=== PATIENT | male | born 1980 | race Caucasian/White ===

== ENCOUNTER 2016-05-09 14:44 | Emergency (ER) | payer OTHER ==
--- NOTE | 2016-05-09 14:55 | EDPHY ---
H & P Stated Complaint: Jaw Pain/Seizure Time Seen by Provider: 05/09/16 14:55 - Personal History Current Tetanus/Diphtheria Vaccine: Yes Current Tetanus Diphtheria and Acellular Pertussis (TDAP): Yes Tetanus Vaccine Date: 2012 - Medical/Surgical History Hx Asthma: No Hx Chronic Respiratory Disease: No Hx Diabetes: No Hx Cardiac Disease: No Hx Renal Disease: No Hx Cirrhosis: No Hx Alcoholism: No Hx HIV/AIDS: No Hx Splenectomy or Spleen Trauma: No Other PMH: denies - Social History Smoking Status: Heavy smoker Constitutional: Initial Vital Signs Temperature (C) 37.2 C 05/09/16 14:52 Heart Rate 80 05/09/16 14:52 Respiratory Rate 20 05/09/16 14:52 Blood Pressure 146/101 H 05/09/16 14:52 O2 Sat (%) 99 05/09/16 14:52 O2 Delivery Mode [Post Nasal Cannula Procedure 2nd] O2 Delivery Mode [Post Non-Rebreather Mask Procedure 1st] O2 Delivery Mode [Procedural Non-Rebreather Mask 1st] O2 Delivery Mode [.Immediate Non-Rebreather Mask Pre-Procedure] O2 Delivery Mode Nasal Cannula O2 (L/minute) [Post Procedure 2 2nd] O2 (L/minute) [Post Procedure 15 1st] O2 (L/minute) [Procedural 1st] 15 O2 (L/minute) [.Immediate Pre- 15 Procedure] O2 (L/minute) 2 Allergies/Adverse Reactions: No Known Allergies Allergy (Unverified 10/25/15 18:53) Home Medications: Medication Instructions Recorded Methocarbamol [Robaxin 750 mg (*)] 750 - 1,500 mg PO QID PRN #30 tab 10/25/15 ALPRAZolam [Xanax 0.5 MG (*)] 0.5 - 1 mg PO PRN PRN 11/05/15 CYCLOBENZAPRINE HCL [Flexeril] 7.5 mg PO TID PRN 11/05/15 Hydrocodone/APAP 5/325 [Rives 1 - 2 tab PO Q4PRN PRN 11/05/15 5/325 (*)] Hydrocodone/Acetaminophen [Vicodin 1 each PO Q6-8PRN PRN 11/05/15 5-300 mg Tablet] Acetaminophen [Tylenol 325mg (*)] 650 mg PO Q4 PRN #0 tab 11/07/15 Sennosides/Docusate Sodium 1 - 2 tab PO BID #30 tab 11/07/15 [Senokot-S] levETIRAcetam [Keppra 500 mg (*)] 750 mg PO BID #14 tab 11/07/15 Cyclobenzaprine [Flexeril 10 MG 10 mg PO TID PRN #7 tab 05/09/16 (*)] oxyCODONE IR [Oxycodone Ir (*)] 5 - 10 mg PO Q6 PRN #7 tab 05/09/16 Medical Decision Making ED Course/Re-evaluation: CHIEF COMPLAINT: Seizure HISTORY OF PRESENT ILLNESS: This patient is a 35 year old male who presents to the Emergency Department by EMS following a witnessed seizure shortly prior to arrival. He presents with an apparent jaw deformity as well as superficial abrasions over both knees and the dorsum of both hands. He has no recollection of the incident. Upon arrival, he has no complaints and states that he does not know what happened. No headache, confusion. Denies evidence of head or neck trauma. He denies history of seizures though his medical history in our system indicates that he has previously been prescribed Keppra. REVIEW OF SYSTEMS: A 10 point review of systems was performed and is negative with the exception of the elements mentioned in the history of present illness. PHYSICAL EXAM: HR 80, BP 146/101, O2 Sat 99%, RR 20. Temp noted General Appearance: Alert, well hydrated, appropriate, and non-toxic appearing. Head: Atraumatic without scalp tenderness or obvious injury Eyes: Pupils equal, round, reactive to light and accommodation, EOMI, no trauma , no injection. Ears: Clear bilaterally, no perforation, normal landmarks Nose: Atraumatic, no rhinorrhea, clear. Throat: There is no erythema or exudates, no lesions, normal tonsils, mucus membranes moist. Mouth: Visible jaw deformity. Neck: Supple, 2+ carotid upstroke, nontender, no lymphadenopathy. Respiratory: No retractions, no distress, no wheezes, and no accessory muscle use. Lungs are clear to auscultation bilaterally. Cardiovascular: Regular rate and rhythm, no murmurs, rubs, or gallops. Bilateral carotid, radial, dorsalis pedis, and posterior tibial pulses intact. Good capillary refill all extremities. Gastrointestinal: Abdomen is soft, nontender, non-distended, no masses, no rebound, no guarding, no peritoneal signs. Musculoskeletal: Normal active ROM of all extremities, superficial abrasions to both knees and over the dorsum of both hands. Neurological: Alert, appropriate, and interactive. The patient has normal DTRs and non-focal cranial nerves, motor, sensory, and cerebellar exam. Skin: No rashes, good turgor, no nodules on palpation. Past medical history: Denies. Past surgical history: Denies. Family history: Non-contributory. Social history: Drinks socially. DIAGNOSTICS/PROCEDURES/CRITICAL CARE TIME: IMAGING: Study: Myofascial CT Indication: Jaw deformity Results: CT of the facial bones was obtained. The results of the study are: bilateral anterior TMJ dislocation; negative for fracture. The study was read by the radiologist, Dr. Augie Boothe. I viewed the images myself on the PACS system. Study: Head CT Indication: Seizure Results: CT of the head was obtained. The results of the study are: normal. The study was read by the radiologist, Dr. Augie Boothe. I viewed the images myself on the PACS system PROCEDURES: Procedure: Reduction of bilateral anterior TMJ Time-out completed immediately before the procedure. IV established. O2 administered. Placed on pulse oximeter and ETCO2 monitor. Given 100 mcg IV fentanyl and 110 mcg propofol for pain and sedation. The bilateral anterior TMJ dislocation was attempted to be reduced using traction/ countertraction without success. The procedure was performed by myself, Dr. Barclay. Procedure: Procedural sedation. Indication: TMJ reduction A pre-sedation evaluation was completed on the patient at 1700. Patient is an appropriate candidate for procedural sedation. The risks, benefits, alternatives of sedation were discussed with the patient. Consent was obtained. The patient was pre-oxygenated with 100% O2 on a [id number] and moved to the procedure room where airway rescue equipment is available. A time out was observed. The patient was sedated with 100mcg fentanyl and 120mcg propofol. The patient was monitored with continuous pulse oximetry, monitoring specialist, and end tidal CO2. There were no complications and no hypoxemia. The patient tolerated the procedure well and returned to baseline. I remained at the bedside for the sedation. The total time I spent in the procedural sedation was 12 minutes. TMJ reduction was performed by Dr. Silveira. DIFFERENTIAL DIAGNOSIS: The differential diagnosis for the patient's seizure included but was not limited to electrolyte abnormality, alcohol withdrawal, medication noncompliance, head injury, SOCK FOLDER structural abnormality, and break through seizure. MEDICAL DECISION MAKING: This 35 year old male presents following a witnessed seizure which he does not remember. He denies a history of seizures though there is suspicion that he may have a seizure disorder as he has been previously prescribed Keppra. It is likely that the patient is postictal upon arrival. He has no complaints apart from apparent jaw deformity and multiple superficial abrasions. 1521: Labs reviewed and indicate anion gap metabolic acidosis consistent with seizure. 1522: The patient's RN spoke with the patient's who reports that he has a history of TBI for which he was prescribed Keppra for seizure prophylaxis. He does have a history of prior jaw dislocations that are reduced spontaneously. 1600: Imaging results reported to me by Dr. Boothe. Plan for TMJ reduction bilaterally. 1622: Procedure for TMJ reduction attempted by myself without success. Plan for consultation with oral surgery as the patient will require reduction under anesthesia. 1629: Consultation with Dr. Brian Silveira, oral surgeon, who will visit the patient and complete the reduction in the ED. 1702: Procedural sedation and subsequent TMJ reduction performed (as described above). The patient will be discharged home in stable condition. Dr. Silveira will see him in her office on Sunday. He is given Flexeril for muscle relaxant and will continue to take his Keppra as prescribed for seizure prophylaxis. - Data Points Laboratory Results: Laboratory Results 05/09/16 14:32 05/09/16 14:32 05/09/16 14:32 WBC 14.34 H 10^3/uL (3.80-9.50) RBC 5.00 10^6/uL (4.40-6.38) Hgb 15.5 g/dL (13.7-17.5) Hct 48.3 % (40.0-51.0) MCV 96.6 fL (81.5-99.8) MCH 31.0 pg (27.9-34.1) MCHC 32.1 L g/dL (32.4-36.7) RDW 14.4 % (11.5-15.2) Plt Count 479 H 10^3/uL (150-400) MPV 9.3 fL (8.7-11.7) Neut % (Auto) 56.5 % (39.3-74.2) Lymph % (Auto) 36.9 % (15.0-45.0) [place] % (Auto) 5.2 % (4.5-13.0) Eos % (Auto) 0.3 L % (0.6-7.6) Baso % (Auto) 0.4 % (0.3-1.7) Nucleat RBC Rel Count 0.0 % (0.0-0.2) Absolute Neuts (auto) 8.09 H 10^3/uL (1.70-6.50) Absolute Lymphs (auto) 5.29 H 10^3/uL (1.00-3.00) Absolute Monos (auto) 0.75 10^3/uL (0.30-0.80) Absolute Eos (auto) 0.05 10^3/uL (0.03-0.40) Absolute Basos (auto) 0.06 10^3/uL (0.02-0.10) Absolute Nucleated RBC 0.00 10^3/uL (0-0.01) Immature Gran % 0.7 % (0.0-1.1) Immature Gran # 0.10 10^3/uL (0.00-0.10) Sodium 145 H mEq/L (134-144) Potassium 4.0 mEq/L (3.5-5.2) Chloride 106 mEq/L (97-110) Carbon Dioxide 10 L mEq/l (22-31) Anion Gap 29 H mEq/L (8-16) BUN 17 mg/dL (7-23) Creatinine 1.0 mg/dL (0.7-1.3) Estimated GFR > 60 Glucose 145 H mg/dL (70-100) Calcium 10.2 mg/dL (8.5-10.4) Medications Given: Discontinued Medications Fentanyl (Sublimaze) 100 mcg IVP EDNOW ONE Stop: 05/09/16 16:16 Last Admin: 05/09/16 16:46 Dose: 100 mcg Hydromorphone HCl (Dilaudid) 1 mg IVP EDNOW ONE Stop: 05/09/16 15:09 Last Admin: 05/09/16 15:17 Dose: 1 mg Lorazepam (Ativan Injection) 1 mg IVP EDNOW ONE Stop: 05/09/16 15:09 Last Admin: 05/09/16 15:17 Dose: 1 mg Propofol (Diprivan) 100 mg IVP EDNOW ONE Stop: 05/09/16 16:16 Last Admin: 05/09/16 16:46 Dose: 100 mg Departure - Departure Disposition: Home, Routine, Self-Care Clinical Impression: Seizure, TMJ dislocation Condition: Good Instructions: Mandibular Dislocation (ED), Recurrent Seizures in Adults (ED) Additional Instructions: 1. Take Flexirel as prescribed for muscle relaxant. Take oxycodone as prescribed as needed for pain. 2. Follow-up with Dr. Silveira in her office on Sunday as discussed. 3. Continue to take your Keppra as prescribed for seizure prevention. Call to schedule a follow-up appointment with a neurologist for further evaluation of your seizures. We have referred you to Dr. Medina. 4. Return to the Emergency Department with repeat seizure, repeat jaw dislocation, confusion, headache, or other serious concerns. Referrals: Brian Silveira [Medical Doctor] - As per Instructions Mainor Medina MD [Medical Doctor] - As per Instructions Prescriptions: Cyclobenzaprine [Flexeril 10 MG (*)] 10 mg PO TID PRN #7 tab PRN Reason: Spasms oxyCODONE IR [Oxycodone Ir (*)] 5 - 10 mg PO Q6 PRN #7 tab PRN Reason: Pain, Severe Report Scribed for: Flash Barclay Report Scribed by: Tara Crandall Date of Report: 05/09/16 Time of Report: 14:57
[2016-05-09 15:07] LABS: % IMMATURE GRANULYOCYTES 0.7 % (0.0-1.1); ADD DIFF? NO; ADD MORPH? NO; ADD SCAN? NO; ATYPICAL LYMPHOCYTE FLAG 40 (0-99); FRAGMENT RBC FLAG 0 (0-99); HEMATOCRIT 48.3 % (40.0-51.0); HEMOGLOBIN 15.5 g/dL (13.7-17.5); LEFT SHIFT FLG 0 (0-99); LIPEMIA HEMOLYSIS FLAG 80 (0-99); MEAN CELL HEMOGLOBIN CONCENTR. 32.1 g/dL (32.4-36.7); MEAN CELL VOLUME 96.6 fL (81.5-99.8); MEAN PLATELET VOLUME 9.3 fL (8.7-11.7); PLATELET CLUMPS FLAG 0 (0-99); PLATELET COUNT 479 10^3/uL (150-400); RED CELL DISTRIBUTION WIDTH 14.4 % (11.5-15.2)
[2016-05-09] MEDS ORDERED: HYDROmorphONE/DILAUDID 1 MG/ML SYR IVP ONE (15:08)
[2016-05-09] MEDS ORDERED: LORazepam 2 MG/ML INJ IVP ONE (15:08)
[2016-05-09 15:14] LABS: ANION GAP 29 mEq/L (8-16); CALCIUM 10.2 mg/dL (8.5-10.4); CARBON DIOXIDE 10 mEq/l (22-31); CHLORIDE 106 mEq/L (97-110); GLOMERULAR FILTRATION RATE > 60; GLUCOSE 145 mg/dL (70-100); SODIUM 145 mEq/L (134-144)
--- NOTE | 2016-05-09 15:57 | CT ---
CT Head Without Contrast History: Seizure with possible dislocation of the jaw. Comparison: CT head November 04, 2015. Technique: Axial unenhanced images were obtained from the vertex through the skull base. Dose reducti on techniques were utilized. Findings: There is bifrontal encephalomalacia, left greater than right, and anterior left temporal en cephalomalacia in areas of previous trauma/hemorrhage. No acute intracranial hemorrhage is present. T here is no midline shift. No extra-axial fluid collections are present. Anterior dislocation of the t emporomandibular joints is noted bilaterally with no visible fracture. Left frontal craniotomy is not ed. Moderate mucous membrane thickening is present in the right maxillary sinus with mild mucous memb lorenzo thickening in the paranasal sinuses. The mastoid air cells are clear Impression: 1. Anterior dislocation of the temporomandibular joints bilaterally. 2. Encephalomalacia in areas of previous trauma. 3. Additional findings as above. Findings discussed with Dr. Flash Barclay, on May 09, 2016 at 1553 hours.
--- NOTE | 2016-05-09 15:59 | CT ---
CT Facial Bones (Without Contrast) History: Seizure today, unable to close jaw. Comparison: CT head same day, CT head November 04, 2015. Technique: Axial images were obtained through the facial bones and coronal reformations were perfor med. The data was reformatted in bone algorithm. Dose reduction techniques were utilized. Findings: There is anterior dislocation of the temporomandibular joints bilaterally. No fracture is i dentified. The paranasal sinuses are clear. The ostiomeatal units are patent. The visible mastoid air cells are clear. Encephalomalacia is noted in areas of previous trauma. Impression: Anterior temporomandibular joint dislocation bilaterally. Findings discussed with Dr. Flash Barclay, on May 09, 2016 at 1553 hours.
[2016-05-09] MEDS ORDERED: PROPOFOL 200 MG/20 ML VIAL ONE (16:09)
[2016-05-09] MEDS ORDERED: fentaNYL 100 MCG/2 ML INJ ONE (16:14)
[2016-05-09] MEDS ORDERED: PROPOFOL 200 MG/20 ML VIAL IVP ONE ×2 (16:15→17:00)
[2016-05-09] MEDS ORDERED: fentaNYL 100 MCG/2 ML INJ IVP ONE ×2 (16:15→17:00)
[2016-05-09 16:43] VITALS: RESP 18
[2016-05-09 17:32] VITALS: TEMP 98.4
[2016-05-09 18:04] VITALS: BP 146/89; PULSE 94; O2SAT 97
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
== END 2016-05-09 18:17 | disposition home or self-care (01) ==
LOC: EDBD → EDUNIT#
PROC: 0RSDXZZ Reposition Left Temporomandibular Joint, External Approach (ICD-10-PCS; principal; 2016-05-09)
PROC: 0RSCXZZ Reposition Right Temporomandibular Joint, External Approach (ICD-10-PCS; 2016-05-09)
DX: R56.9 Unspecified convulsions (principal); S03.03XA Dislocation of jaw, bilateral, initial encounter; F17.200 Nicotine dependence, unspecified, uncomplicated; X58.XXXA Exposure to other specified factors, initial encounter; Y93.89 Activity, other specified
CPT/HCPCS: 96374; J1170; J2704; J3010

== ENCOUNTER 2016-10-08 17:28 | Emergency (ER) | payer SELFPAY ==
[2016-10-08 17:45] VITALS: RESP 16; TEMP 98.4
[2016-10-08] MEDS ORDERED: NS 1,000 ML IV ONE (17:47)
[2016-10-08] MEDS ORDERED: KETOROLAC 30 MG/1 ML SDV IVP ONE (17:47)
[2016-10-08] MEDS ORDERED: METOCLOPRAMIDE 10 MG/2 ML VIAL IVP ONE (17:47)
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
[2016-10-08 18:45] VITALS: BP 123/76; PULSE 76; O2SAT 96
== END 2016-10-08 18:58 | disposition home or self-care (01) ==
LOC: CED 17:28
DX: G43.009 Migraine without aura, not intractable, without status migrainosus (principal); E86.9 Volume depletion, unspecified; F17.200 Nicotine dependence, unspecified, uncomplicated
CPT/HCPCS: 96374; J1200; J1885; J2765

== ENCOUNTER 2016-12-11 16:29 | Emergency (ER) | payer SELFPAY ==
[2016-12-11 16:39] VITALS: BP 124/62; RESP 18; TEMP 98
[2016-12-11] MEDS ORDERED: IBUPROFEN 600 MG TAB PO ONE (17:18)
[2016-12-11] MEDS ORDERED: ACETAMINOPHEN 500 MG TAB PO ONE (17:18)
--- NOTE | 2016-12-11 17:23 | EDPHY ---
H & P Time Seen by Provider: 12/11/16 16:56 HPI/ROS: This patient tripped over his dog in a paved parking lot and fell with pain at the base of the 1st metacarpal in his left hand from where he landed. He also sustained an abrasion to his right knee. The incident occurred 2 hours prior to arrival. He has not taken any medication and he reports moderate pain to the hand mild pain from the abrasion. Hand pain worsens with movement. No other exacerbating factors. Drove here by private vehicle for further evaluation. ROS: Musculoskeletal: No neck or back pain. Neuro: No numbness or tingling Cardiovascular: No pallor to the affected hand. 5 point ROS is otherwise negative. Past Medical/Surgical History: Migraines-Imitrex p.r.n. Smoking Status: Current every day smoker Physical Exam: Physical Exam Vital signs are normal. General: No acute distress HEENT: Atraumatic. Eyes: Pupils equal and react to light. Extraocular motions are intact. Lungs: No respiratory distress. Cardiac: Brisk capillary refill is intact throughout. Pulses are 2+ and symmetric in the affected extremity. Skin: No rash or pallor. Superficial abrasion to the left prepatellar region with no can't 10 minutes a fernandez and no active bleeding. Partial-thickness. No underlying bony tenderness Musculoskeletal: Tenderness at the base of the left 1st metacarpal with no significant swelling. He has slight limitation range of motion in abduction- cannot touches pinky due to pain to that area. No gross deformity. No other hand swelling or tenderness. No wrist tenderness or swelling. No anatomical snuffbox tenderness. Neuro: Alert with no sensorimotor deficits in the affected extremity. Initial differential diagnosis: Hand fracture 2 base of 1st metacarpal versus sprain versus contusion, abrasion Constitutional: Initial Vital Signs Temperature (C) 36.6 C 12/11/16 16:38 Heart Rate 74 12/11/16 16:38 Respiratory Rate 18 12/11/16 16:38 Blood Pressure 124/62 H 12/11/16 16:38 O2 Sat (%) 96 12/11/16 16:38 O2 Delivery Mode Room Air Allergies/Adverse Reactions: No Known Allergies Allergy (Verified 10/08/16 17:45) Home Medications: Medication Instructions Recorded SUMAtriptan [Imitrex 25 MG (*)] 25 mg PO Q2H #12 tab 10/08/16 MDM/Departure - MDM Diagnostics: Hand x-ray: Negative for fracture by my interpretation Imaging Results: Imaging Impressions Hand X-Ray 12/11/16 16:39 Impression: No acute osseous findings. Imaging: I viewed and interpreted images myself Medications Given: Discontinued Medications Acetaminophen (Tylenol) 1,000 mg PO EDNOW ONE Stop: 12/11/16 17:19 Last Admin: 12/11/16 17:39 Dose: 1,000 mg Ibuprofen (Motrin) 600 mg PO EDNOW ONE Stop: 12/11/16 17:19 Last Admin: 12/11/16 17:39 Dose: 600 mg ED Course/Re-evaluation: I counseled this patient regarding sprain. He is treated with ibuprofen Tylenol for pain Velcro thumb spica splint is applied. This is placed by our nurse and patient is neurovascular intact post splint application. Wound care was given to the abrasion-after let solution, cleaned and bandage applied. Discussion: Patient with hand sprain and abrasion without evidence of fracture , scaphoid fracture or other complications. - Depart Disposition: Home, Routine, Self-Care Clinical Impression: Hand sprain Qualifiers: Encounter type: initial encounter Laterality: left Qualified Code(s): S63.92XA - Sprain of unspecified part of left wrist and hand, initial encounter Leg abrasion Qualifiers: Encounter type: initial encounter Laterality: right Qualified Code(s): S80.811A - Abrasion, right lower leg, initial encounter Condition: Good Instructions: Hand Sprain (ED), Abrasion (ED) Additional Instructions: Diagnoses: 1. Hand sprain 2. Leg abrasion Plan: Clean your leg regularly and apply dressing until it heals. Velcro thumb spica splint for the next 5-10 days until symptoms improve Remove the splint each day and gently stretch thumb he can also remove this for bathing or for sleep Ibuprofen, ice and Tylenol for comfort as needed Follow up with the orthopedic physician listed below if you have ongoing symptoms are not improving over the next 7-10 days with her hand. Referrals: NONE *PRIMARY CARE P,. [Primary Care Provider] - As per Instructions Adriana Gonzales MD [Medical Doctor] - As per Instructions
[2016-12-11 17:48] VITALS: PULSE 78; O2SAT 97
== END 2016-12-11 17:42 | disposition home or self-care (01) ==
LOC: CED 16:29
DX: S63.92XA Sprain of unspecified part of left wrist and hand, initial encounter (principal); S80.811A Abrasion, right lower leg, initial encounter; F17.200 Nicotine dependence, unspecified, uncomplicated; W01.0XXA Fall on same level from slipping, tripping and stumbling without subsequent striking against object, initial encounter; Y92.481 Parking lot as the place of occurrence of the external cause
CPT/HCPCS: 73130-PO; L3807

== ENCOUNTER 2017-07-12 11:38 | Emergency (ER) | payer SELFPAY ==
--- NOTE | 2017-07-12 11:53 | EDPHY ---
General Time Seen by Provider: 07/12/17 11:48 Narrative: CHIEF COMPLAINT: Seizure HISTORY OF PRESENT ILLNESS: Patient presents with reports of possible seizure at 11:00 a.m.. This was witnessed by bystanders as told by EMS. They describe generalized seizure activity. He has known seizure disorder, diagnosed 1 year ago. He takes Keppra and missed a dose this morning. 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 He was reportedly postictal by EMS. At this time he complains of mild pain in the tongue and face. No headache. No neck pain or stiffness. No chest pain or shortness of breath. No abdominal, back or extremity pain or injuries. He missed his Keppra this morning but thinks he took it last night. He has not seen a primary care physician or neurologist for this. He has no insurance and is concerned because. No other associated complaints or modifying factors. REVIEW OF SYSTEMS: Ten systems reviewed and are negative unless otherwise noted in the HPI PCP: None SPECIALISTS: None PAST MEDICAL HISTORY: Seizure disorder PAST SURGICAL HISTORY: No recent surgeries SOCIAL HISTORY: Daily smoker. Occasional alcohol. Denies drug use. 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 Well-developed and well-nourished. Head: normocephalic, atraumatic Eyes: Pupils equal and round, no conjunctival pallor or injection. Minimal horizontal nystagmus. No dysconjugate gaze ENT, Mouth: Mucous membranes moist. Minimal ecchymosis to the right side of the tongue. Airway is widely patent and midline uvula. Neck: Normal inspection, supple, non-tender Respiratory: Lungs are clear to auscultation Cardiovascular: Regular rate and rhythm. No murmur. Gastrointestinal: Abdomen is soft and nontender Back: non-tender, no bony abnormalities Neurological: GCS 15. Cranial nerves 2-12 grossly intact. A&O, nonfocal, strength is symmetric in all 4 limbs. No pronator drift. Normal finger-to- nose. Skin: Warm and dry, no rash. Superficial abrasion to the cheeks of the face. Extremities: Nontender, no pedal edema Psychiatric: Mood and affect normal DIFFERENTIAL DIAGNOSES: Including but not limited to epilepsy, focal seizure, grand mal seizure, closed head injury, abrasion, subtherapeutic Keppra, tongue abrasions, status epilepticus MDM: 11:50 a.m. Likely seizure with no status epilepticus at this time. He has known seizure disorder diagnosed 1 year ago. He thinks he has missed his Keppra this morning. I have ordered IV Keppra and I will monitor him shortly. He is in no acute distress. Vital signs are stable. He is mildly postictal but feels he has significantly improved from initial. Tetanus is up-to-date and there are no lacerations that require suture repair. 12:27 p.m. CBC unremarkable. Chemistry is consistent with seizure. I have re-evaluated the patient twice since arrival and he is resting comfortably in no acute distress. No seizure activity thus far. He is alert and oriented within normal neuro exam. 12:40 p.m. Patient re-evaluated. He is receiving Keppra. No seizure activity in this emergency department. He is awake and alert no acute distress. No headache. No neck pain. 1:00 p.m. Patient exhibits no further seizure activity here. He has ambulated without difficulty. We have loaded with IV Keppra he will resume his previous Keppra dosing. I have also provided the information for [facility] and the on- call neurologist as he has yet been seen by specialist. We discussed driving precautions for 90 days or until cleared by Neurology. We discussed avoiding dangerous activities. We discussed ED precautions. I do feel he is stable for discharge home, and he has a friend at bedside who will drive him home. Discharged stable condition with seizure-like activity with no evidence of status epilepticus. SUPERVISION: Patient was independently examined, but I discussed the case with my primary supervising physician Dr. Lr. - History Smoking Status: Current every day smoker - Objective Vital Signs: Initial Vital Signs Temperature (C) 99.1 F 07/12/17 11:38 Heart Rate 92 07/12/17 11:38 Respiratory Rate 18 07/12/17 11:38 Blood Pressure 143/86 H 07/12/17 11:38 O2 Sat (%) 94 07/12/17 11:38 O2 Delivery Mode Room Air Allergies/Adverse Reactions: No Known Allergies Allergy (Verified 07/12/17 11:45) Home Medications: Medication Instructions Recorded Keppra 07/12/17 levETIRAcetam [Keppra 500 mg (*)] 500 mg PO BID #60 tab 07/12/17 Laboratory Results: Laboratory Results 07/12/17 11:40 07/12/17 11:40 07/12/17 07/12/17 11:40 11:40 WBC 8.48 10^3/uL 10^3/uL (3.80-9.50) RBC 5.42 10^6/uL 10^6/uL (4.40-6.38) Hgb 16.7 g/dL g/dL (13.7-17.5) Hct 50.2 % % (40.0-51.0) MCV 92.6 fL fL (81.5-99.8) MCH 30.8 pg pg (27.9-34.1) MCHC 33.3 g/dL g/dL (32.4-36.7) RDW 13.9 % % (11.5-15.2) Plt Count 406 10^3/uL H 10^3/uL (150-400) Sodium 139 mEq/L mEq/L (135-145) Potassium 4.4 mEq/L mEq/L (3.5-5.2) Chloride 98 mEq/L mEq/L (97-110) Carbon Dioxide 17 mEq/l L mEq/l (22-31) Anion Gap 24 mEq/L H mEq/L (8-16) BUN 24 mg/dL H mg/dL (7-23) Creatinine 1.2 mg/dL mg/dL (0.7-1.3) Estimated GFR > 60 Glucose 133 mg/dL H mg/dL (70-100) Calcium 10.7 mg/dL H mg/dL (8.5-10.4) Phosphorus 4.2 mg/dL mg/dL (2.5-4.5) Medications Given: Discontinued Medications Sodium Chloride (Ns) 1,000 mls @ 0 mls/hr IV EDNOW ONE; Wide Open PRN Reason: Protocol Stop: 07/12/17 11:55 Last Admin: 07/12/17 12:11 Dose: 1,000 mls Levetiracetam (Keppra (Premix)) 100 mls @ 400 mls/hr IV EDNOW ONE Stop: 07/12/17 12:08 Last Admin: 07/12/17 12:11 Dose: 100 mls Departure - Departure Disposition: Home, Routine, Self-Care Clinical Impression: Epileptic seizures due to external causes, not intractable, without status epilepticus Tongue laceration Qualifiers: Encounter type: initial encounter Qualified Code(s): S01.512A - Laceration without foreign body of oral cavity, initial encounter Condition: Good Instructions: Recurrent Seizures in Adults (ED), Driving Restrictions (ED) Additional Instructions: 1. Keppra 500 mg twice daily as previously prescribed 2. Contact [facility] to be seen in their clinic outpatient and to discuss Neurology referral 3. ED precautions for return of seizures 4. Driving and machinery precautions for 90 days or until cleared by neurologist Referrals: [facility],. [Clinic] - As per Instructions Mainor Medina MD [Medical Doctor] - As per Instructions Prescriptions: levETIRAcetam [Keppra 500 mg (*)] 500 mg PO BID #60 tab
[2017-07-12] MEDS ORDERED: NS 1,000 ML IV ONE (11:54)
[2017-07-12] MEDS ORDERED: levETIRAcetam 1000MG/NACL 100 ML IV ONE (11:54)
[2017-07-12 12:01] LABS: PLATELET COUNT 406 10^3/uL (150-400)
[2017-07-12 13:32] VITALS: BP 129/79
== END 2017-07-12 13:30 | disposition home or self-care (01) ==
LOC: EDUNIT#
DX: G40.909 Epilepsy, unspecified, not intractable, without status epilepticus (principal); S01.512A Laceration without foreign body of oral cavity, initial encounter; E86.9 Volume depletion, unspecified; F17.200 Nicotine dependence, unspecified, uncomplicated; X58.XXXA Exposure to other specified factors, initial encounter
CPT/HCPCS: 96365; J1953

== ENCOUNTER 2017-12-27 21:58 | Emergency (ER) | payer SELFPAY ==
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
[2017-12-27] MEDS ORDERED: KETOROLAC 30 MG/1 ML SDV IVP ONE (22:47)
[2017-12-27] MEDS ORDERED: METOCLOPRAMIDE 10 MG/2 ML VIAL IVP ONE (22:47)
[2017-12-27] MEDS ORDERED: HYDROCOD/APAP 5/325 PREPACK#6 BTL TAKEHOME ONE (22:48)
[2017-12-27 23:31] VITALS: BP 111/83
== END 2017-12-27 23:31 | disposition home or self-care (01) ==
LOC: CED 21:58
DX: S60.221A Contusion of right hand, initial encounter (principal); G43.909 Migraine, unspecified, not intractable, without status migrainosus; F17.200 Nicotine dependence, unspecified, uncomplicated; W23.0XXA Caught, crushed, jammed, or pinched between moving objects, initial encounter; Y92.9 Unspecified place or not applicable; Y93.9 Activity, unspecified; Y99.9 Unspecified external cause status
CPT/HCPCS: 73130-PO; 96374; J1200; J1885; J2765

== ENCOUNTER 2018-01-31 04:59 | Emergency (ER) | payer MEDICAID ==
[2018-01-31] MEDS ORDERED: SUMAtriptan 6 MG/0.5 ML VIAL SC ONE (05:15)
[2018-01-31] MEDS ORDERED: DEXAMETHASONE 10 MG/ML VIAL IVP ONE (05:20)
[2018-01-31] MEDS ORDERED: NS 1,000 ML IV ONE (05:20)
[2018-01-31] MEDS ORDERED: METOCLOPRAMIDE 10 MG/2 ML VIAL IVP ONE (05:20)
[2018-01-31] MEDS ORDERED: KETOROLAC 15 MG/1 ML SDV IVP ONE (05:21)
--- NOTE | 2018-01-31 05:24 | EDPHY ---
H & P Time Seen by Provider: 01/31/18 05:13 HPI/ROS: CHIEF COMPLAINT: Headache History by patient HISTORY OF PRESENT ILLNESS: 37-year-old man with history of migraine headaches since his traumatic brain injury couple years ago presents complaining of a headache like his typical migraines. He says it starts feeling like a headache , it is not unilateral, but then gets worse and spreads throughout his head and neck and jaw area. Assigned associated with any nausea vomiting, photophobia or phonophobia. He does take Imitrex for which sometimes works but he is out of his Imitrex because he has been having frequent headaches. He says typically gets them once or twice a month but lately he has been having them weekly. This 1 began yesterday. He has not taken any Tylenol or ibuprofen or anything else for this head. He denies any focal numbness or weakness. He has been seen in the ER for his headaches in the past. He denies any alcohol use. He gets his usual primary care at [facility]. REVIEW OF SYSTEMS: As in HPI, and all other systems reviewed and are negative Smoking Status: Heavy smoker Physical Exam: General Appearance: Alert, well-appearing, strong odor cigarette smoke Head: normocephalic, atraumatic Eyes: Pupils equal and round, reactive to light, no pallor or injection. Extraocular movements intact Mouth: Mucous membranes moist. Oropharynx clear Neck: Full range of motion, no meningismus Respiratory: Normal, effort, lungs are clear to auscultation. No wheezes, rales or rhonchi. Cardiovascular: Regular rate and rhythm. S1, S2, no murmurs, gallops or rubs appreciated Gastrointestinal: Abdomen is soft and nontender, no masses, bowel sounds normal. Back: No CVA tenderness, no bony tenderness Neurological: Awake, alert and oriented x 3, cranial nerves 2 through 12 intact , no pronator drift, normal gait, heel to fernandez intact, [id number] intact, DTRs 2+ and equal bilaterally, sensation equal bilaterally, normal gait Skin: Warm and dry, no rashes. Musculoskeletal: No deformities or tenderness. Extremities: full range of motion, no edema, DP2+ bilat Psychiatric: Patient has normal affect, there is no agitation. Constitutional: Initial Vital Signs Temperature (C) 36.5 C 01/31/18 05:06 Heart Rate 87 01/31/18 05:06 Respiratory Rate 16 01/31/18 05:06 Blood Pressure 137/95 H 01/31/18 05:06 O2 Sat (%) 98 01/31/18 05:06 O2 Delivery Mode Room Air Allergies/Adverse Reactions: No Known Allergies Allergy (Verified 01/31/18 05:05) Home Medications: Medication Instructions Recorded levETIRAcetam [Keppra 500 mg (*)] 500 mg PO BID #60 tab 07/12/17 SUMAtriptan [Imitrex 50 MG (*)] 50 mg PO Q2H #14 tab 11/12/17 MDM/Departure - MDM Medications Given: Discontinued Medications Dexamethasone (Decadron Injection) 10 mg IVP EDNOW ONE Stop: 01/31/18 05:21 Last Admin: 01/31/18 05:35 Dose: 10 mg Diphenhydramine HCl (Benadryl Injection) 25 mg IVP EDNOW ONE Stop: 01/31/18 05:21 Last Admin: 01/31/18 05:34 Dose: 25 mg Sodium Chloride (Ns) 1,000 mls @ 0 mls/hr IV ONCE ONE; Wide Open PRN Reason: Protocol Stop: 01/31/18 05:21 Last Admin: 01/31/18 05:38 Dose: 1,000 mls Ketorolac Tromethamine (Toradol) 15 mg IVP EDNOW ONE Stop: 01/31/18 05:22 Last Admin: 01/31/18 05:34 Dose: 15 mg Metoclopramide HCl (Reglan Injection) 10 mg IVP EDNOW ONE Stop: 01/31/18 05:21 Last Admin: 01/31/18 05:35 Dose: 10 mg ED Course/Re-evaluation: 37-year-old man presents with headache typical for his usual recurrent headaches. Patient was given IV Benadryl, ketorolac, Reglan and dexamethasone as well as IV fluids. On re-evaluation the patient was feeling better. I recommend he discuss use of preventative medications with his primary care physician. - Depart Disposition: Home, Routine, Self-Care Clinical Impression: Headache Qualifiers: Headache type: unspecified Headache chronicity pattern: acute headache Intractability: not intractable Qualified Code(s): R51 - Headache Condition: Good Instructions: Migraine Headache (ED) Additional Instructions: You were seen by Dr. Alexia Skinner today. Please follow up with your primary care physician at [facility] to discuss need for preventive medications for headaches given the frequency that he get them. Return for any worsening or new concerns. Referrals: [facility] [Outside] - As per Instructions
[2018-01-31 07:04] VITALS: BP 127/79
== END 2018-01-31 07:00 | disposition home or self-care (01) ==
LOC: CED 04:59
DX: G43.909 Migraine, unspecified, not intractable, without status migrainosus (principal); E86.9 Volume depletion, unspecified; F17.210 Nicotine dependence, cigarettes, uncomplicated; Z87.820 Personal history of traumatic brain injury
CPT/HCPCS: J1100; J1885; J2765; J3030